=== PATIENT | female | born 1990 | race Caucasian/White ===

== ENCOUNTER 2017-01-19 18:29 | Emergency (ER) | payer OTHER, MEDICAID ==
[~2017-01-19] VITALS: Ht 167.6 cm; Wt 60.0 kg
[~2017-01-19 18:29] MED LIST: BUTA1CAP PO; LO LTAB PO/GT
[2017-01-19 18:32] VITALS: BP 114/71; PULSE 94; RESP 12; TEMP 98.1; O2SAT 99
[2017-01-19] MEDS ORDERED: IBUPROFEN 800 MG TAB PO ONE (18:45)
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
[2017-01-19] MEDS ORDERED: IBUP800T23 PO (18:53)
[2017-01-19] MEDS ORDERED: ROBA500T PO (18:53)
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
== END 2017-01-19 20:09 | disposition home or self-care (01) ==
LOC: NETRI 18:29
DX: S20.219A Contusion of unspecified front wall of thorax, initial encounter (principal); V89.2XXA Person injured in unspecified motor-vehicle accident, traffic, initial encounter
CPT/HCPCS: 71010; 94150; 99284

== ENCOUNTER 2018-03-04 10:28 | Emergency (ER) | payer MEDICAID ==
[~2018-03-04 10:28] MED LIST changes: +IBUP1TAB7 PO; -LO LTAB PO/GT; +ROBA500T PO
[2018-03-04 10:50] VITALS: BP 114/56; PULSE 78; RESP 16; TEMP 97.8; O2SAT 99
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
== END 2018-03-04 12:18 | disposition home or self-care (01) ==
LOC: NEPD 10:28
DX: M79.604 Pain in right leg (principal); M79.605 Pain in left leg
CPT/HCPCS: 99282